=== PATIENT | female | born 1960 | race Caucasian/White ===

== ENCOUNTER → 2022-02-14 | Outpatient (CLI) | payer OTHER ==
[2022-02-14 14:02] LABS: HEMATOCRIT 39.6 % (37.0-47.0); MEAN CELL VOLUME 94.1 fl (81.0-99.0); MEAN CORPUSCULAR HGB 30.4 pg (27.0-31.0); MEAN CORPUSCULAR HGB CONC 32.3 g/dl (33.0-37.0); MEAN PLATELET VOLUME 11.7 fl (9.6-12.3); RED BLOOD COUNT 4.21 10*6/uL (4.10-5.10); RED CELL DISTRI WIDTH 12.8 % (0-14.5); WHITE BLOOD COUNT 5.8 10*3/uL (4.8-10.8)
[2022-02-14 14:06] LABS: BILIRUBIN Negative (Negative); BLOOD Negative (Negative); CLARITY Clear (Clear); COLOR Yellow (Yellow); GLUCOSE Negative (Negative); KETONE Negative (Negative); LEUKO ESTERASE Negative (Negative); NITRITE Negative (Negative); PH 7.5 (4.5-8.0); UROBILINOGEN 0.2 E.U./dl (0.0-1.0)
[2022-02-14 14:13] LABS: ACT PARTIAL THROMBO TIME 31.5 SECONDS (20.0-32.1); INTERNATIONAL NORM RATIO 0.9 (2.0-3.5)
[2022-02-14 14:14] LABS: EPITHELIAL CELLS 0-2; RBC 0-2 rbc/hpf (0-2)
[2022-02-14 14:19] LABS: ALKALINE PHOSPHATASE 78 U/L (45-117); BUN 14 mg/dl (7-24); CHLORIDE 110 mmol/L (98-107); CHOLESTEROL 245 mg/dL (<200); CREATININE 0.75 mg/dL (0.55-1.02); LDL CHOLESTEROL 128 mg/dL (9-159); POTASSIUM 3.9 mmol/L (3.5-5.1); SGOT/AST 20 IU/L (3-35); SGPT/ALT 32 U/L (12-78); SODIUM 142 mmol/L (136-145); TOTAL PROTEIN 7.2 gm/dL (6.4-8.2); TRIGLYCERIDES 236 mg/dl (<150)
== END | disposition home or self-care (01) ==
LOC: LAB 13:06
PROVIDERS: ATTEND Family Medicine
DX: Z01.818 Encounter for other preprocedural examination (principal); E55.9 Vitamin D deficiency, unspecified; M25.512 Pain in left shoulder; M75.102 Unspecified rotator cuff tear or rupture of left shoulder, not specified as traumatic; R06.02 Shortness of breath; Z79.899 Other long term (current) drug therapy